=== PATIENT | female | born 1995 | race Caucasian/White ===

== ENCOUNTER → 2022-12-21 | Outpatient (CLI) | payer OTHER ==
[2022-12-21 18:00] LABS: Source, Urine Clean Catch
[2022-12-21 19:53] LABS: Mucus Light (0-Heavy); Squamous Epithelial Cells Few /hpf (Few)
[2022-12-21 19:55] LABS: Bacteria Mod /hpf; Red Blood Cells, Urine 0-2 /hpf (0-2); White Blood Cells, Urine 0-2 /hpf (0-5)
== END | disposition home or self-care (01) ==
LOC: LAB 17:58 → LAB SHORT 17:58
PROVIDERS: Advanced Practice Midwife
DX: Z34.01 Encounter for supervision of normal first pregnancy, first trimester (principal)
CPT/HCPCS: 81015; 87086

== ENCOUNTER → 2023-01-11 | Outpatient (CLI) | payer OTHER | END | disposition home or self-care (01) | LOC: LAB SHORT 16:33 → LAB 16:33 | PROVIDERS: Advanced Practice Midwife | DX: Z34.80 Encounter for supervision of other normal pregnancy, unspecified trimester (principal) | CPT/HCPCS: G0145 ==

== ENCOUNTER 2023-07-21 06:03 | Inpatient (IN) | payer OTHER ==
[~2023-07-21] VITALS: Ht 157.5 cm; Wt 93.1 kg
[2023-07-21] VITALS (22 sets, daily range): BP systolic 110–142; BP diastolic 59–100
[2023-07-21] MEDS ORDERED: Ondansetron HCl 2 MG / ML 2ML Vial IV PRN (07:00)
[2023-07-21] MEDS ORDERED: FentaNYL Citrate 50 MCG/ML 2 ML Injection IV PRN (07:00)
[2023-07-21] MEDS ORDERED: Calcium Carbonate 500 MG Tab Chew PO ONE (07:05)
[2023-07-21] MEDS ORDERED: Misoprostol 200 MCG Tab PR SCH (07:05)
[2023-07-21] MEDS ORDERED: Lidocaine HCl 1% 30 ML SDV XX SCH (07:05)
[2023-07-21] MEDS ORDERED: Castor Oil 59.146 ML BTL TOP SCH (07:05)
[2023-07-21] MEDS ORDERED: Bupivacaine 0.5% HCl 5 MG/ML 30MLVIAL XX SCH (07:05)
[2023-07-21] MEDS ORDERED: Oxytocin 10 Unit / ML Vial IM SCH (07:05)
[2023-07-21] MEDS ORDERED: Lactated Ringer's 1,000 ML IV PRN (07:05)
[2023-07-21] MEDS ORDERED: Bupivacaine HCl 2.5 MG/ML 10ML P/F Injection XX SCH (07:05)
[2023-07-21] MEDS ORDERED: Methylergonovine Maleate 0.2MG / ML 1ML Amp IM SCH (07:05)
[2023-07-21] MEDS ORDERED: LR Oxytocin 20 Units 1,000 ML IV SCH (07:05)
[2023-07-21] MEDS ORDERED: Flonase 0.05% N16 GM (07:09)
[2023-07-21 07:56] LABS: BASOPHILS ABSOLUTE AUTO 0.02 K/mm3 (0.00-0.23); BASOPHILS PERCENT AUTO 0 % (0-2); EOSINOPHILS ABSOLUTE AUTO 0.11 K/mm3 (0.00-0.68); EOSINOPHILS PERCENT AUTO 1 % (0-6); Hematocrit 36.3 % (33.0-51.0); Hemoglobin 11.9 g/dL (11.5-16.0); IMMATURE GRAN ABSOLUTE AUTO 0.11 K/mm3 (0.00-0.10); IMMATURE GRAN PERCENT AUTO 1 % (0-1); LYMPHOCYTES PERCENT AUTO 16 % (21-46); MONOCYTES ABSOLUTE AUTO 0.86 K/mm3 (0.16-1.47); MONOCYTES PERCENT AUTO 8 % (4-13); Mean Corpuscular HGB 25.9 pg (26.0-34.0); Mean Corpuscular HGB Conc 32.8 g/dL (31.5-36.5); Mean Corpuscular Volume 79 fL (80-100); Mean Platelet Volume 10.6 fL (9.1-12.4); NEUTROPHILS ABSOLUTE AUTO 8.56 K/mm3 (1.96-9.15); NEUTROPHILS PERCENT AUTO 75 % (41-73); Platelet Count 266 K/mm3 (150-400); RDW Coefficient Variation 14.9 % (11.7-14.2); RDW Standard Deviation 42.5 fL (35.1-46.3); White Blood Cell Count 11.46 K/mm3 (4.00-11.30)
[2023-07-21] MEDS ORDERED: FentaNYL 2mcg/ml-Bup 0.1% Epd 250 ML EPI PRN (09:00)
[2023-07-21] MEDS ORDERED: Lactated Ringer's 1,000 ML IV SCH ×3 (09:00→16:30)
[2023-07-21] MEDS ORDERED: ePHEDrine Sulfate 50 MG/ML 1ML Injection XX PRN (09:00)
[2023-07-21] MEDS ORDERED: Calcium Carbonate 500 MG Tab Chew PO PRN (11:40)
[2023-07-21] MEDS ORDERED: Methylergonovine Maleate 0.2MG / ML 1ML Amp IM PRN (16:30)
[2023-07-21] MEDS ORDERED: LR Oxytocin 20 Units 1,000 ML IV PRN (16:30)
[2023-07-21] MEDS ORDERED: Rho(D) Immune Globulin 300 MCG / SYR IM SCH (16:30)
[2023-07-21] MEDS ORDERED: Lanolin Cream TOP PRN (16:30)
[2023-07-21] MEDS ORDERED: Ibuprofen 400 MG Tab PO PRN (16:30)
[2023-07-21] MEDS ORDERED: Witch Hazel/Glycerin PADS TOP PRN (16:35)
[2023-07-21] MEDS ORDERED: Acetaminophen 500 MG Tab PO PRN (16:35)
[2023-07-21] MEDS ORDERED: Benzocaine Topical Anesthetic Spray 60GM TOP PRN (16:35)
[2023-07-21] MEDS ORDERED: Ketorolac Tromethamine 30mg Vial IV SCH (17:00)
[2023-07-21] MEDS ORDERED: Bupivacaine 0.5% HCl 5 MG/ML 30MLVIAL EPI ONE (17:48)
[2023-07-22 01:56] VITALS: BP 107/66
[2023-07-22 05:01] VITALS: BP 130/77
[2023-07-22 08:04] VITALS: BP 117/72
[2023-07-22] MEDS ORDERED: IBUP800 PO (08:42)
[2023-07-22] MEDS ORDERED: PRENATAL TABLE1 EAC2 PO (08:43)
[2023-07-22] MEDS ORDERED: ACET500 PO (08:43)
[2023-07-22] MEDS ORDERED: Prenatal Vit/FE Fumarate/FA 1 Tab PO SCH (09:00)
[2023-07-22 12:42] VITALS: BP 119/59
[2023-07-22 16:22] VITALS: BP 125/77
--- NOTE | 2023-07-22 16:24 | NUR ---
D/C INSTRUCTIONS DISCUSSED AND SIGNED. DISCUSSED QUESTIONS AND CONCERNS AND FOLLOW UP APPOINTMENTS. DISCUSSED BOARDER STATUS. INFORMATION SHEET GIVEN. PT D/C TO BOARDER STATUS.
--- NOTE | 2023-07-24 14:42 | NUR ---
PPFU - DONE VIA PHONE. PT STATES SHE IS STILL W/ NB AT [facility]. PT STATES SHE HAS BEEN PUMPING AND , AND HAS BEEN SUPPORTED BY CONSULT WHILE AT [facility]. PT STATES SHE HAS NOT HAD A BM SINCE DELIVERY BUT IS PASSING GAS AND PLANS TO GET A STOOL SOFTNER. PT STATES HER BLEEDING IS DECREASING AND IS RED IN COLOR. PT DENIES HEADACHE, BLURRED VISION, OR DIZZINESS. PT DENIES NUMBNESS OR TINGLING IN HER HANDS AND FEET. PT STATES SHE HAS SWELLING FROM HER FEET TO HER KNEE. PT DENIES ANY TENDER, RED, HOT SPOTS TO THE BACK OF KNEES OR CALVES. PT STATES SHE HAS A F/U APPOINTMENT W/ OB SCHEDULED. PT STATES SHE IS TAKING FLONASE AND PLANS TO START TAKING A STOOL SOFTNER. PT DENIES ANY FURTHER QUESTIONS OR CONCERNS.
== END 2023-07-22 16:27 | disposition home or self-care (01) | DRG 807 ==
LOC: OBS 06:03 → BC 06:14 → OBS 06:44 → BC 06:46
PROVIDERS: ADMIT Family Medicine
PROC: 10E0XZZ Delivery of Products of Conception, External Approach (ICD-10-PCS; principal; 2023-07-21)
PROC: 0KQM0ZZ Repair Perineum Muscle, Open Approach (ICD-10-PCS; 2023-07-21)
DX: O42.02 Full-term premature rupture of membranes, onset of labor within 24 hours of rupture (principal); Z37.0 Single live birth; Z3A.39 39 weeks gestation of pregnancy; Z79.899 Other long term (current) drug therapy; O70.1 Second degree perineal laceration during delivery
CPT/HCPCS: 36415; 59025; 81003; 85025; 86850; 86900; 86901; A9270; J1885; J2590; J3010; J7120

== ENCOUNTER → 2024-12-21 | Outpatient (CLI) | payer OTHER ==
[~2024-12-21] MED LIST: ACET500 PO; Flonase 0.05% N16 GM; IBUP800 PO; PRENATAL TABLE1 EAC2 PO
[2024-12-21 16:48] LABS: Source, Urine Clean Catch
[2024-12-21 19:14] LABS: Red Blood Cells, Urine 0-2 /hpf (0-2); White Blood Cells, Urine 0-2 /hpf (0-5)
[2024-12-21 19:17] LABS: U Amphetamine Screen Not Detected; U Methamphetamine Screen Not Detected
[2024-12-21 19:18] LABS: U Barbituate Screen Not Detected; U Benzodiazapine Screen Not Detected; U Buprenorphine Screen Not Detected; U Cannabinoids Screen Not Detected; U Cocaine Screen Not Detected; U Methadone Screen Not Detected; U Opiates Screen Not Detected; U Oxycodone Screen Not Detected; U Phencyclidine Screen Not Detected
== END | disposition home or self-care (01) ==
LOC: LAB 16:39 → LAB SHORT 16:39
PROVIDERS: Advanced Practice Midwife
DX: Z34.81 Encounter for supervision of other normal pregnancy, first trimester (principal)
CPT/HCPCS: 81015; 87086

== ENCOUNTER → 2025-02-04 | Outpatient (CLI) | payer OTHER ==
[2025-02-04 18:46] LABS: Bilirubin, Urine Neg (Neg); Color, Urine Yellow (P-Yellow); Glucose Qualitative, Urine Neg (Neg); Ketones, Urine 4+ (Neg); Leukocyte Esterase, Urine 1+ (Neg); Protein, Urine 2+ (Neg); Specific Gravity, Urine 1.015 (1.003-1.022); Urobilinogen, Urine NORM (Normal)
[2025-02-04 18:56] LABS: Red Blood Cells, Urine 0-2 /hpf (0-2)
[2025-02-08 06:37] LABS: C. TRACHOMATIS BY TMA,THINPREP Negative (Negative); N. GONORRHOEAE BY TMA,THINPREP Negative (Negative)
== END ==
LOC: LAB 18:04 → LAB SHORT 18:04
PROVIDERS: Advanced Practice Midwife
DX: Z01.419 Encounter for gynecological examination (general) (routine) without abnormal findings (principal); Z11.3 Encounter for screening for infections with a predominantly sexual mode of transmission; N39.0 Urinary tract infection, site not specified
CPT/HCPCS: 81001; 87086; 87491; 87591; G0145

== ENCOUNTER → 2025-03-08 | Outpatient (CLI) | payer OTHER ==
[2025-03-08 18:39] LABS: C-REACTIVE PROTEIN, EXT RANGE 3.83 mg/dL (0.000-0.300)
[2025-03-08 19:03] LABS: Ferritin, Serum 23.0 ng/mL (8-252); Total Iron Binding Capacity 413.0 ug/dL (250-450)
[2025-03-10 05:38] LABS: TISSUE TRANSGLUTAMINAS TTG,IGA 1.81 FLU (0.00-4.99)
== END ==
LOC: LAB 13:25 → LAB SHORT 13:25
PROVIDERS: Student in an Organized Health Care Education/Training Program
DX: K52.9 Noninfective gastroenteritis and colitis, unspecified (principal); R53.83 Other fatigue
CPT/HCPCS: 82607; 82728; 82746; 83540; 83550; 86140; 86364

== ENCOUNTER → 2025-03-09 | Outpatient (CLI) | payer OTHER ==
[2025-03-09 14:20] LABS: Campylobacter Sp Not Detected (NOT DETECT); Enteroaggregative E. coli-EAEC Not Detected (NOT DETECT); Enteropathogenic E. coli-EPEC Not Detected (NOT DETECT); Enterotoxigenic E. coli-ETEC Not Detected (NOT DETECT); Salmonella Sp Not Detected (NOT DETECT); Vibrio Sp Not Detected (NOT DETECT)
[2025-03-09 14:21] LABS: E. Coli O157 Not Detected (NOT DETECT); Shiga Toxin-prod E. coli-STEC Not Detected (NOT DETECT); Shigella/Enteroin E. coli-EIEC Not Detected (NOT DETECT)
[2025-03-11 17:54] LABS: CALPROTECTIN,FECAL 2020 ug/g (<=49)
[2025-03-11 17:55] LABS: PANCREATIC ELASTASE,FECAL 631 ug/g (>=100)
== END | disposition home or self-care (01) ==
LOC: LAB SHORT 11:41 → LAB 11:41
PROVIDERS: Student in an Organized Health Care Education/Training Program
DX: K52.9 Noninfective gastroenteritis and colitis, unspecified (principal)
CPT/HCPCS: 87507